=== PATIENT | female | born 2000 | race Two or more races ===

== ENCOUNTER 2023-12-13 17:30 | Emergency (ER) | payer OTHER ==
[~2023-12-13] VITALS: Ht 157.5 cm; Wt 61.2 kg
[2023-12-13] MEDS ORDERED: 0.9 % SODIUM CHLORIDE 1,000 ML IV STA (18:04)
[2023-12-13 18:44] LABS: HEMATOCRIT 41.7 % (36.0-45.00); HEMOGLOBIN 14.2 g/dL (12.0-15.00); MEAN CELL VOLUME 88.2 fL (80.00-100.00); MEAN CORPUSCULAR HGB CONC 34.1 g/dl (32.0-36.0); PLATELET COUNT 356 K/uL (150-450); RED BLOOD COUNT 4.72 M/uL (4.00-6.00); RED CELL DISTRIBUTION WIDTH 13.3 % (11.5-14.5)
[2023-12-13 19:14] LABS: CALCIUM 9.3 mg/dL (8.5-10.1); CREATININE SERUM 0.78 mg/dL (0.55-1.02); GFR 91.52; POTASSIUM 3.44 mEq/L (3.5-5.1)
[2023-12-13 19:18] LABS: URINE APPEARANCE Cloudy; URINE BILIRRUBIN Negative (NEGATIVE); URINE BLOOD Large; URINE COLOR Yellow; URINE GLUCOSE Negative (NEGATIVE); URINE LEUKOCYTE Negative; URINE NITRATE Negative; URINE PROTEIN Trace (NEGATIVE)
[2023-12-13 19:22] LABS: URINE BACTERIA 927.3 uL (0.0-1933); URINE EPITHELIAL CELLS 24.4 uL (0.0-38.8); URINE RBC 113.3 uL (0.0-20.8)
[2023-12-14] MEDS ORDERED: ONDANSETRON 4 MG TAB.RAPDIS PO STA (00:53)
[2023-12-14] MEDS ORDERED: HYOSCYAMINE SULFATE 0.125 MG TAB.SUBL SL STA (00:53)
[2023-12-14] MEDS ORDERED: LACTOBACILLUS ACIDOPHILUS 1 CAP CAP PO STA (00:54)
[2023-12-14] MEDS ORDERED: LEVSIN/SL0.125 MG SL (00:58)
[2023-12-14] MEDS ORDERED: INTESTINEX680 M1 PO (00:58)
[2023-12-14] MEDS ORDERED: ONDANSETRON ODT4 MG PO (00:58)
== END 2023-12-14 01:12 ==
LOC: ER 17:31
PROVIDERS: Emergency Medicine
DX: K52.89 Other specified noninfective gastroenteritis and colitis (principal); Z88.8 Allergy status to other drugs, medicaments and biological substances